=== PATIENT | male | born 1995 | race Caucasian/White ===

== ENCOUNTER 2019-11-25 16:40 | Emergency (ER) | payer OTHER ==
[~2019-11-25] VITALS: Ht 185.4 cm; Wt 95.1 kg
[2019-11-25] MEDS ORDERED: CYCLOBENZAPRINE 5MG TABLET PO ONE (17:45)
[2019-11-25] MEDS ORDERED: KETOROLAC TROMETHAMINE 10 MG TAB PO ONE ×2 (17:45→18:30)
[2019-11-25 18:08] VITALS: BP 135/80
[2019-11-25] MEDS ORDERED: KETO10TAB PO (18:21)
[2019-11-25] MEDS ORDERED: CYCL10TA PO (18:21)
[2019-11-25] MEDS ORDERED: CYCLOBENZAPRINE 10 MG TAB PO ONE (18:30)
== END 2019-11-25 18:28 | disposition home or self-care (01) ==
LOC: M ED 16:40
DX: S16.1XXA Strain of muscle, fascia and tendon at neck level, initial encounter (principal); X58.XXXA Exposure to other specified factors, initial encounter; F17.210 Nicotine dependence, cigarettes, uncomplicated; Z79.899 Other long term (current) drug therapy